=== PATIENT | male | born 1980 | race Caucasian/White ===

== ENCOUNTER 2016-08-14 11:21 | Inpatient (IN) | payer BC ==
[2016-08-14] MEDS ORDERED: Ondansetron 4 MG/2 ML SDV IV PRN (12:21)
[2016-08-14] MEDS ORDERED: Sodium Chloride 0.9% 10 ML Syringe FLUSH PRN (12:21)
[2016-08-14] MEDS ORDERED: Temazepam 15 MG Cap PO PRN (12:21)
[2016-08-14] MEDS ORDERED: Docusate Sodium 100 MG Cap PO PRN (12:21)
--- NOTE | 2016-08-14 12:41 | PCM.HP ---
H&P History of Present Illness - General Date of Service: 08/14/16 Admit Problem/Dx: Admission Diagnosis/Problem Admission Diagnosis/Problem Febrile disorder H/O Kidney Transplant Bergers Disease Source of Information: Patient History Limitations: Reports: No Limitations - History of Present Illness Initial Comments - Free Text/Narative: Patient in to clinic this am with fever 104.5 with chills and rigors for past 24 hours. Cough and congestion started yesterday with low grade fever indicates he slept most of the day with decreased fluid intake. He denies sick contacts. He was treated in clinic with Tylenol 1000 mg prior to admission. Work up for Sepsis initiated. Onset of Symptoms: Reports: Gradual Symptom Onset Date: 08/13/16 Symptom Onset Time: 08:00 Duration of Symptoms: Reports: Getting Worse Location: Reports: Generalized Quality: Reports: Other Severity: Severe Improves with: Reports: Rest. Denies: None Worsens with: Reports: Movement Context: Denies: Sick Contact, Travel Associated Symptoms: Reports: Cough, Diaphoresis, Fever/Chills, Malaise, Nausea/ Vomiting - Related Data Allergies/Adverse Reactions: Allergies Allergy/AdvReac Type Severity Reaction Status Date / Time vancomycin Allergy Intermediate Airway Verified 08/14/16 11:25 Tightness Home Medications: Home Meds Lisinopril [Prinivil] 20 mg PO DAILY 03/09/14 [History] Metoprolol Succinate [Toprol XL] 100 mg PO DAILY 03/09/14 [History] Mycophenolate Mofetil [Cellcept] 1,000 mg PO BID 03/09/14 [History] NIFEdipine [Procardia XL] 60 mg PO DAILY 03/09/14 [History] Sirolimus [Rapamune] 3 mg PO DAILY 03/09/14 [History] predniSONE [Prednisone] 5 mg PO DAILY 08/14/16 [History] Past Medical History - Past Health History Medical/Surgical History: Denies Medical/Surgical History (Bergers Disease with renal transplant in 2002) HEENT History: Reports: Impaired Vision Cardiovascular History: Reports: Hypertension Respiratory History: Reports: None Gastrointestinal History: Reports: None Genitourinary History: Reports: Chronic Renal Insuffiency, Dialysis, Other (See Below). Denies: Acute Renal Failure (Renal ransplant 2002) [employer] TE[employer]ER History: Reports: None Musculoskeletal History: Reports: None Neurological History: Reports: None Psychiatric History: Reports: None Endocrine/Metabolic History: Reports: None Hematologic History: Reports: Anemia Immunologic History: Reports: Immunosuppression, Solid Organ Transplant Oncologic (Cancer) History: Reports: None Dermatologic History: Reports: None - Infectious Disease History Infectious Disease History: Reports: None - Past Surgical History Head Surgeries/Procedures: Reports: None HEENT Surgical History: Reports: None Cardiovascular Surgical History: Reports: None Respiratory Surgical History: Reports: None GI Surgical History: Reports: None Female Surgical History: Reports: Other (See Below). Denies: Nephrectomy Male Surgical History: Reports: Nephrectomy (Transplant 2003) Endocrine Surgical History: Reports: None Neurological Surgical History: Reports: None Musculoskeletal Surgical History: Reports: None Oncologic Surgical History: Reports: None Dermatological Surgical History: Reports: None Social & Family History - Family History Family Medical History: Noncontributory Cardiac: Reports: CAD Respiratory: Reports: Asthma GI: Reports: None : Reports: None OBGYN: Reports: None Musculoskeletal: Reports: None Neurological: Reports: None Psychiatric: Reports: None Endocrine/Metabolic: Reports: None Hematologic: Reports: None Immunologic: Reports: None Dermatologic: Reports: None Oncologic: Reports: None - Tobacco Use Smoking Status *Q: Current Every Day Smoker Years of Tobacco use: 15 H&P Review of Systems - Review of Systems: Review Of Systems: See Below General: Reports: Fever, Chills, Malaise, Weakness, Fatigue, Night Sweats, Diaphoresis, Decreased Appetite HEENT: Reports: No Symptoms Pulmonary: Reports: Cough. Denies: Shortness of Breath, Wheezing, Pleuritic Chest Pain, Sputum, Hemoptysis Cardiovascular: Reports: Blood Pressure Problem, Other (Congestion) Gastrointestinal: Reports: Anorexia, Diarrhea, Decreased Appetite, Nausea, Vomiting. Denies: Abdominal Pain, Black Stool, Bloody Stool, Hematemesis Genitourinary: Reports: No Symptoms Musculoskeletal: Reports: Muscle Pain. Denies: Joint Pain, Joint Swelling Skin: Reports: No Symptoms Psychiatric: Reports: No Symptoms Neurological: Reports: No Symptoms Hematologic/Lymphatic: Reports: No Symptoms Immunologic: Reports: No Symptoms Exam - Exam Exam: See Below - Vital Signs Weight: 65.227 kg - Exam General: Alert, Oriented, Cooperative, Moderate Distress HEENT: Conjunctiva Clear, EACs Clear, EOMI, Hearing Intact, Mucosa Moist & [place] , Nares Patent, Normal Nasal Septum, Pupils Equal, Pupils Reactive Neck: Supple, Trachea Midline, Full Range of Motion Lungs: Clear to Auscultation, Normal Respiratory Effort. No: Decreased Breath Sounds, Crackles, Rales, Wheezing Cardiovascular: Regular Rate, Regular Rhythm, Normal S1, Normal S2 Abdomen: Normal Bowel Sounds, Soft (Male) Exam: Deferred Rectal (Males) Exam: Deferred Back Exam: Normal Inspection, Full Range of Motion Peripheral Pulses: 2+: Carotid (L), Carotid (R), Brachial (L), Brachial (R), Radial (L), Radial (R), Dorsalis Pedis (L), Dorsalis Pedis (R) Skin: Warm, Dry, Intact, Moist Neurological: Cranial Nerves Intact, Reflexes Equal Bilateral, Strength Equal Bilateral, Normal Speech Neuro Extensive - Mental Status: Alert, Oriented x3, Normal Mood/Affect, Normal Cognition, Memory Intact Neuro Extensive - Motor, Sensory, Reflexes: Normal Gait, Normal Reflexes Psychiatric: Alert, Normal Affect, Normal Mood (Acutely Ill) - Patient Data Lab Results last 24 hrs: Laboratory Results - last 24 hr 08/14/16 08/14/16 08/14/16 Range/Units 11:40 11:40 11:40 WBC 7.3 (5.0-10.0) 10^3/uL RBC 4.03 L (4.50-6.00) 10^6/uL Hgb 11.9 L (14.0-18.0) g/dL Hct 35.8 L (40.0-54.0) % MCV 88.8 (82.0-94.0) fL MCH 29.5 (27.0-32.0) pg MCHC 33.2 (33.0-38.0) g/dL RDW Coeff of Kika 13.1 (11.0-15.0) % Plt Count 101 L (150-400) 10^3/uL Neut % (Auto) 89.0 H (35-85) % Lymph % (Auto) 5.9 L (10-55) % [place] % (Auto) 4.6 (0-16) % Eos % (Auto) 0.1 (0-5) % Baso % (Auto) 0.4 (0-3) % Neut # (Auto) 6.51 (1.80-7.00) 10^3/uL Lymph # (Auto) 0.43 L (1.00-4.80) 10^3/uL [place] # (Auto) 0.34 (0.00-0.80) 10^3/uL Eos # (Auto) 0.01 (0.00-0.45) 10^3/uL Baso # (Auto) 0.03 10^3/uL Sodium 129 L (136-145) mEq/L Potassium 3.9 (3.5-5.0) mEq/L Chloride 98 (98-106) mEq/L Carbon Dioxide 16 L (21-32) mmol/L BUN 31 H (7-18) mg/dL Creatinine 2.8 H* D (0.7-1.3) mg/dL Est Cr Clr Drug Dosing 33.33 mL/min Estimated GFR (MDRD) 26 L (>=60) mL/min Glucose 133 H D (75-99) mg/dL Lactic Acid 1.3 (0.4-2.0) mmol/L Calcium 9.1 (8.4-10.1) mg/dL Total Bilirubin 0.4 (0.0-1.0) mg/dL AST 21 (15-37) U/L ALT 22 (12-78) U/L Alkaline Phosphatase 43 L (46-116) U/L C-Reactive Protein 8.2 H (0.2-0.8) mg/dL Total Protein 6.8 (6.4-8.2) g/dL Albumin 3.5 (3.4-5.0) g/dL Result Diagrams: 08/14/16 11:40 08/14/16 11:40 *Q Meaningful Use (ADM) - VTE *Q VTE Criteria *Q: - Stroke *Q Stroke Criteria *Q: - AMI *Q AMI Criteria *Q: - Problem List (1) Pneumonia SNOMED Code(s): 194791913 ICD Code: J18.9 - PNEUMONIA, UNSPECIFIED ORGANISM Status: Acute Current Visit: No (2) Kidney transplant evaluation SNOMED Code(s): 456357293 - Kidney transplant evaluation Status: Chronic Current Visit: No (3) Febrile illness, acute SNOMED Code(s): 333421079 ICD Code: R50.9 - FEVER, UNSPECIFIED Status: Acute Current Visit: Yes Problem List Initiated/Reviewed/Updated: Yes Orders Last 24hrs: Active Orders 24 hr Category Date Time Status Patient Status [ADT] Routine ADT 08/14/16 11:21 Ordered Height and Weight [RC] UPON Care 08/14/16 12:14 Ordered Intake and Output [RC] QSHIFT Care 08/14/16 12:15 Ordered Oxygen Therapy [RC] PRN Care 08/14/16 12:11 Ordered Oxygen Therapy [RC] PRN Care 08/14/16 12:14 Ordered Up ad Vidhya [RC] ASDIRECTED Care 08/14/16 12:14 Ordered VTE/DVT Education [RC] PER UNIT ROUTINE Care 08/14/16 12:14 Ordered Vital Signs [RC] Q4H Care 08/14/16 12:11 Ordered Vital Signs [RC] Q4H Care 08/14/16 12:14 Ordered Regular Diet [DIET] Diet 08/14/16 Lunch Ordered Chest 2V [CR] Routine Exams 08/14/16 11:24 Taken CBC WITH AUTO DIFF [HEME] AM Lab 08/15/16 05:11 Ordered CMP [COMPREHENSIVE METABOLIC PN,CMP] [CHEM] AM Lab 08/15/16 05:11 Ordered CRP [C-REACTIVE PROTEIN] [CHEM] Routine Lab 08/15/16 05:11 Ordered CULTURE BLOOD [BC] Stat Lab 08/14/16 11:40 Received CULTURE BLOOD [BC] Stat Lab 08/14/16 11:40 Received UA W/MICROSCOPIC [URIN] Routine Lab 08/14/16 11:23 Uncollected Acetaminophen [Tylenol] Med 08/14/16 12:14 Ordered 650 mg PO Q4H PRN Docusate Sodium [Colace] Med 08/14/16 12:21 Ordered 100 mg PO BID PRN Lactated Ringers [Ringers, Lactated] 1,000 ml Med 08/14/16 12:30 Ordered IV ASDIRECTED Lisinopril [Prinivil] Med 08/15/16 08:00 Ordered 20 mg PO DAILY Metoprolol Succinate [Toprol XL] Med 08/15/16 08:00 Ordered 100 mg PO DAILY Mycophenolate Mofetil [Cellcept] Med 08/14/16 20:00 Ordered 1,000 mg PO BID NIFEdipine [Procardia XL] Med 08/15/16 08:00 Ordered 60 mg PO DAILY Ondansetron [Zofran] Med 08/14/16 12:21 Ordered 4 mg IV Q4H PRN Sirolimus [Rapamune] Med 08/15/16 08:00 Ordered 3 mg PO DAILY Sodium Chloride 0.9% [Saline Flush] Med 08/14/16 12:21 Ordered 10 ml FLUSH ASDIRECTED PRN Temazepam [Restoril] Med 08/14/16 12:21 Ordered 15 mg PO BEDTIME PRN cefTRIAXone [Rocephin] Med 08/14/16 12:30 Ordered 1 gm IVPUSH Q24H predniSONE [Prednisone] Med 08/15/16 08:00 Ordered 5 mg PO DAILY Blood Culture x2 Reflex Set [OM.PC] Stat Oth 08/14/16 11:23 Ordered Saline Lock Insert [OM.PC] Routine Oth 08/14/16 12:14 Ordered Resuscitation Status Routine Resus Stat 08/14/16 12:11 Ordered Medication Orders Acetaminophen (Tylenol) 650 mg PO Q4H PRN PRN Reason: Pain (Mild 1-3)/fever Ceftriaxone Sodium (Rocephin) 1 gm IVPUSH Q24H RADHA Docusate Sodium (Colace) 100 mg PO BID PRN PRN Reason: Constipation Lactated Ringer's (Ringers, Lactated) 1,000 mls @ 125 mls/hr IV ASDIRECTED RADHA Lisinopril (Prinivil) 20 mg PO DAILY RADHA Metoprolol Succinate (Toprol Xl) 100 mg PO DAILY RADHA Non-Formulary Medication (Mycophenolate Mofetil [Cellcept]) 1,000 mg PO BID RADHA Non-Formulary Medication (Nifedipine [Procardia Xl]) 60 mg PO DAILY RADHA Non-Formulary Medication (Sirolimus [Rapamune]) 3 mg PO DAILY RADHA Non-Formulary Medication (Prednisone [Prednisone]) 5 mg PO DAILY RADHA Ondansetron HCl (Zofran) 4 mg IV Q4H PRN PRN Reason: Nausea/Vomiting Sodium Chloride (Saline Flush) 10 ml FLUSH ASDIRECTED PRN PRN Reason: Keep Vein Open Temazepam (Restoril) 15 mg PO BEDTIME PRN PRN Reason: Sleep Assessment/Plan Comment:: Acute febrile Illness Immuno -compromised Steroid Dependant Pneumonia
[2016-08-14] MEDS: cefTRIAXone 1 GM Vial IVPUSH SCH (13:03)
[2016-08-14] MEDS: Lactated Ringers 1,000 ML IV SCH ×2 (13:04→22:13)
[2016-08-14] MEDS: Acetaminophen 325 MG Tab PO PRN ×2 (15:00→20:10)
[2016-08-14] MEDS ORDERED: Levofloxacin/Dextrose 5%-Water 750 MG in Premix Bag 1 BAG IV ONE (16:37)
[2016-08-14] MEDS ORDERED: Calcium Carbonate 500 MG Tab.Chew PO PRN (19:18)
[2016-08-14] MEDS ORDERED: MYCOPHENOLATE MOFETIL 250 MG PO SCH (20:00)
[2016-08-14] MEDS: SIROLIMUS 1 MG PO SCH (20:10)
[2016-08-14] MEDS: Ibuprofen 200 MG Tab PO PRN (23:47)
[2016-08-15] MEDS: Lactated Ringers 1,000 ML IV SCH ×3 (06:20→21:51)
[2016-08-15] MEDS: MYCOPHENOLATE MOFETIL 250 MG PO SCH ×2 (08:00→20:25)
[2016-08-15] MEDS: NIFEdipine 30 MG Tab.ER PO SCH (08:20)
[2016-08-15] MEDS: Metoprolol Succinate 100 MG Tab.ER PO SCH (08:20)
[2016-08-15] MEDS: Lisinopril 20 MG Tab PO SCH (08:21)
[2016-08-15] MEDS: predniSONE 5 MG Tab PO SCH (08:21)
--- NOTE | 2016-08-15 10:14 | PCM.PN ---
- General Info Date of Service: 08/15/16 Admission Dx/Problem (Free Text): Admission Diagnosis/Problem Admission Diagnosis/Problem Febrile disorder H/O Kidney Transplant Bergers Disease Subjective Update: "I am feeling much better. I think I am getting caught up on fluids and I feel alot better. I have had a little bit of heartburn that TUMS works well for. My fever is down and I am not having any pain." Functional Status: Reports: pain controlled, tolerating diet, ambulating, urinating Pain Score: 0 - Review of Systems General: Reports: Fever (Decreased in the 100 range from 104.5), Appetite. Denies: Weakness, Fatigue, Malaise, Chills, Night Sweats HEENT: Reports: glasses Pulmonary: Reports: no symptoms. Denies: cough, sputum, wheezing Cardiovascular: Reports: No Symptoms. Denies: Chest Pain, Dyspnea on Exertion, Lightheadedness Gastrointestinal: Reports: Diarrhea. Denies: Abdominal pain, Nausea, Vomiting ( Hungry eating well) Genitourinary: Reports: other (Output increased voiding 600 cc last void). Denies: dysuria, frequency, burning, pain, urgency, incontinence, hematuria, retention, flank pain Musculoskeletal: Reports: no symptoms Skin: Reports: no symptoms Neurological: Reports: No Symptoms Psychiatric: Reports: no symptoms (Patient notes "Tick" last week with self removal mid chest region-) - Patient Data Vitals - most recent: Last Vital Signs Temp 35.3 C 08/15/16 08:00 Pulse 58 L 08/15/16 08:20 Resp 16 08/15/16 08:00 BP 100/56 L 08/15/16 08:21 Pulse Ox 98 08/15/16 08:00 Weight - most recent: 65.227 kg I&O - last 24 hours: Intake & Output 08/14/16 08/15/16 08/15/16 22:59 06:59 14:59 Intake Total 1999 1200 Output Total 250 Balance 1999 950 Lab Results last 24 hrs: Laboratory Results - last 24 hr 08/14/16 08/14/16 08/14/16 Range/Units 11:23 11:40 11:40 WBC 7.3 (5.0-10.0) 10^3/uL RBC 4.03 L (4.50-6.00) 10^6/uL Hgb 11.9 L (14.0-18.0) g/dL Hct 35.8 L (40.0-54.0) % MCV 88.8 (82.0-94.0) fL MCH 29.5 (27.0-32.0) pg MCHC 33.2 (33.0-38.0) g/dL RDW Coeff of Kika 13.1 (11.0-15.0) % Plt Count 101 L (150-400) 10^3/uL Neut % (Auto) 89.0 H (35-85) % Lymph % (Auto) 5.9 L (10-55) % [place] % (Auto) 4.6 (0-16) % Eos % (Auto) 0.1 (0-5) % Baso % (Auto) 0.4 (0-3) % Neut # (Auto) 6.51 (1.80-7.00) 10^3/uL Lymph # (Auto) 0.43 L (1.00-4.80) 10^3/uL [place] # (Auto) 0.34 (0.00-0.80) 10^3/uL Eos # (Auto) 0.01 (0.00-0.45) 10^3/uL Baso # (Auto) 0.03 10^3/uL Sodium 129 L (136-145) mEq/L Potassium 3.9 (3.5-5.0) mEq/L Chloride 98 (98-106) mEq/L Carbon Dioxide 16 L (21-32) mmol/L BUN 31 H (7-18) mg/dL Creatinine 2.8 H* D (0.7-1.3) mg/dL Est Cr Clr Drug Dosing 33.33 mL/min Estimated GFR (MDRD) 26 L (>=60) mL/min Glucose 133 H D (75-99) mg/dL Lactic Acid (0.4-2.0) mmol/L Calcium 9.1 (8.4-10.1) mg/dL Total Bilirubin 0.4 (0.0-1.0) mg/dL AST 21 (15-37) U/L ALT 22 (12-78) U/L Alkaline Phosphatase 43 L (46-116) U/L C-Reactive Protein 8.2 H (0.2-0.8) mg/dL Total Protein 6.8 (6.4-8.2) g/dL Albumin 3.5 (3.4-5.0) g/dL Urine Color Yellow (YELLOW) Urine Appearance Clear (CLEAR) Urine pH 5.5 (4.5-8.0) Ur Specific [place] 1.017 (1.003-1.020) Urine Protein >=300 H (NEGATIVE) mg/dL Urine Glucose (UA) Negative (NEGATIVE) mg/dL Urine Ketones Negative (NEGATIVE) mg/dL Urine Occult Blood Moderate H (NEGATIVE) Urine Nitrite Negative (NEGATIVE) Urine Bilirubin Negative (NEGATIVE) Urine Urobilinogen 0.2 (0.2-1.0) EU/dL Ur Leukocyte Esterase Negative (NEGATIVE) Urine RBC 5-10 H (0-5) /HPF Urine WBC Not seen (0-5) /HPF Ur Squamous Epith Cells Few H (NOT SEEN) /HPF Urine Bacteria Few H (NOT SEEN) /HPF 08/14/16 08/15/16 08/15/16 Range/Units 11:40 07:30 07:30 WBC 6.5 (5.0-10.0) 10^3/uL RBC 4.01 L (4.50-6.00) 10^6/uL Hgb 11.8 L (14.0-18.0) g/dL Hct 35.8 L (40.0-54.0) % MCV 89.3 (82.0-94.0) fL MCH 29.4 (27.0-32.0) pg MCHC 33.0 (33.0-38.0) g/dL RDW Coeff of Kika 13.3 (11.0-15.0) % Plt Count 67 L (150-400) 10^3/uL Neut % (Auto) 86.3 H (35-85) % Lymph % (Auto) 9.3 L (10-55) % [place] % (Auto) 4.2 (0-16) % Eos % (Auto) 0 (0-5) % Baso % (Auto) 0.2 (0-3) % Neut # (Auto) 5.59 (1.80-7.00) 10^3/uL Lymph # (Auto) 0.60 L (1.00-4.80) 10^3/uL [place] # (Auto) 0.27 (0.00-0.80) 10^3/uL Eos # (Auto) 0.00 (0.00-0.45) 10^3/uL Baso # (Auto) 0.01 10^3/uL Sodium 134 L (136-145) mEq/L Potassium 4.3 (3.5-5.0) mEq/L Chloride 101 (98-106) mEq/L Carbon Dioxide 21 (21-32) mmol/L BUN 34 H (7-18) mg/dL Creatinine 2.7 H* (0.7-1.3) mg/dL Est Cr Clr Drug Dosing 34.56 mL/min Estimated GFR (MDRD) 27 L (>=60) mL/min Glucose 99 D (75-99) mg/dL Lactic Acid 1.3 (0.4-2.0) mmol/L Calcium 8.9 (8.4-10.1) mg/dL Total Bilirubin 0.2 (0.0-1.0) mg/dL AST 33 (15-37) U/L ALT 30 (12-78) U/L Alkaline Phosphatase 38 L (46-116) U/L C-Reactive Protein 11.5 H (0.2-0.8) mg/dL Total Protein 6.1 L (6.4-8.2) g/dL Albumin 2.8 L (3.4-5.0) g/dL Urine Color (YELLOW) Urine Appearance (CLEAR) Urine pH (4.5-8.0) Ur Specific [place] (1.003-1.020) Urine Protein (NEGATIVE) mg/dL Urine Glucose (UA) (NEGATIVE) mg/dL Urine Ketones (NEGATIVE) mg/dL Urine Occult Blood (NEGATIVE) Urine Nitrite (NEGATIVE) Urine Bilirubin (NEGATIVE) Urine Urobilinogen (0.2-1.0) EU/dL Ur Leukocyte Esterase (NEGATIVE) Urine RBC (0-5) /HPF Urine WBC (0-5) /HPF Ur Squamous Epith Cells (NOT SEEN) /HPF Urine Bacteria (NOT SEEN) /HPF Med Orders - Current: Current Medications Acetaminophen (Tylenol) 650 mg PO Q4H PRN PRN Reason: Pain (Mild 1-3)/fever Last Admin: 08/14/16 20:10 Dose: 650 mg Calcium Carbonate/Glycine (Tums) 500 mg PO QID PRN PRN Reason: Dyspepsia Last Admin: 08/14/16 23:51 Dose: 500 mg Ceftriaxone Sodium (Rocephin) 1 gm IVPUSH Q24H [facility] Last Admin: 08/14/16 13:03 Dose: 1 gm Docusate Sodium (Colace) 100 mg PO BID PRN PRN Reason: Constipation Lactated Ringer's (Ringers, Lactated) 1,000 mls @ 125 mls/hr IV ASDIRECTED [facility] Last Admin: 08/15/16 06:20 Dose: 125 mls/hr Ibuprofen (Motrin) 600 mg PO Q8H PRN PRN Reason: Fever Last Admin: 08/14/16 23:47 Dose: 600 mg Lisinopril (Prinivil) 20 mg PO DAILY [facility] Last Admin: 08/15/16 08:21 Dose: Not Given Metoprolol Succinate (Toprol Xl) 100 mg PO DAILY [facility] Last Admin: 08/15/16 08:20 Dose: 100 mg Nifedipine (Procardia Xl) 60 mg PO DAILY [facility] Last Admin: 08/15/16 08:20 Dose: 60 mg Sirolimus [Rapamune] (1mg Own Med) 0 mg PO DAILY@1999 [facility] Last Admin: 08/14/16 20:10 Dose: 3 mg Mycophenolate Mofetil [Cellcept] 250mg Own Med 0 mg PO BID [facility] Ondansetron HCl (Zofran) 4 mg IV Q4H PRN PRN Reason: Nausea/Vomiting Prednisone (Prednisone) 5 mg PO DAILY [facility] Last Admin: 08/15/16 08:21 Dose: 5 mg Sodium Chloride (Saline Flush) 10 ml FLUSH ASDIRECTED PRN PRN Reason: Keep Vein Open Temazepam (Restoril) 15 mg PO BEDTIME PRN PRN Reason: Sleep Discontinued Medications Levofloxacin/Dextrose 750 mg/ (Premix) 150 mls @ 100 mls/hr IV ONETIME ONE Stop: 08/14/16 18:06 Last Admin: 08/14/16 17:52 Dose: 100 mls/hr Mycophenolate Mofetil [Cellcept] 250mg Own Med 0 mg PO BID [facility] Comments:: Patient doing well. Dehydration resolving. Patient reports "Tick" embedded mid chest last week with self removal. Denies rash or other S/S since removal. - Exam Quality Assessment: No: supplemental oxygen, central line/PICC, urine catheter, DVT prophylaxis, skin breakdown General: alert, oriented, cooperative, no acute distress HEENT: Pupils equal, EOMI, Mucous membr. moist/pink. No: Scleral icterus Neck: supple, trachea midline, no JVD, no thyromegaly Lungs: Clear to auscultation, Normal respiratory effort Cardiovascular: Regular Rate, Regular Rhythm Abdomen: bowel sounds present, soft, no tenderness, no distension (Male) Exam: Deferred Back Exam: Normal Inspection, Full Range of Motion Extremities: no edema, no calf tenderness Peripheral Pulses: 3+: Radial (L), Radial (R), Dorsalis Pedis (L), Dorsalis Pedis (R) Skin: warm, dry, intact, other (6 mm scab noted midchest S/P tick removal. No redness heat or rash noted.) Wound/Incisions: healing well. No: drainage, erythema Neurological: no new focal deficit, normal gait, normal speech, normal tone, strength equal bilateral, sensation intact Psy/Mental Status: alert, normal affect, normal mood - Problem List & Annotations (1) Pneumonia SNOMED Code(s): 218140808 Code(s): J18.9 - PNEUMONIA, UNSPECIFIED ORGANISM Status: Acute Current Visit: No (2) Kidney transplant evaluation SNOMED Code(s): 213784605 - Kidney transplant evaluation Status: Chronic Current Visit: No (3) Febrile illness, acute SNOMED Code(s): 256093334 Code(s): R50.9 - FEVER, UNSPECIFIED Status: Acute Current Visit: Yes - Problem List Review Problem List Initiated/Reviewed/Updated: Yes - My Orders Last 24 Hours: My Active Orders 08/14/16 11:21 Patient Status [ADT] Routine 08/14/16 11:23 Blood Culture x2 Reflex Set [OM.PC] Stat 08/14/16 11:24 Chest 2V [CR] Routine 08/14/16 11:40 CULTURE BLOOD [BC] Stat CULTURE BLOOD [BC] Stat 08/14/16 12:11 Oxygen Therapy [RC] .PRN Vital Signs [RC] 0000,0400,0800,1200,1600,2000 Resuscitation Status Routine 08/14/16 12:14 Oxygen Therapy [RC] PRN Up ad Vidhya [RC] .PRN Acetaminophen [Tylenol] 650 mg PO Q4H PRN Saline Lock Insert [OM.PC] Routine 08/14/16 12:15 Intake and Output [RC] 0600,1800 08/14/16 12:21 Docusate Sodium [Colace] 100 mg PO BID PRN Ondansetron [Zofran] 4 mg IV Q4H PRN Sodium Chloride 0.9% [Saline Flush] 10 ml FLUSH ASDIRECTED PRN Temazepam [Restoril] 15 mg PO BEDTIME PRN 08/14/16 12:30 Lactated Ringers [Ringers, Lactated] 1,000 ml IV ASDIRECTED cefTRIAXone [Rocephin] 1 gm IVPUSH Q24H 08/14/16 19:18 Calcium Carbonate [Tums] 500 mg PO QID PRN 08/14/16 20:00 Sirolimus [Rapamune] 0 mg PO DAILY@199908/14/16 22:45 Ibuprofen [Motrin] 600 mg PO Q8H PRN 08/14/16 Lunch Regular Diet [DIET] 08/15/16 08:00 Lisinopril [Prinivil] 20 mg PO DAILY Metoprolol Succinate [Toprol XL] 100 mg PO DAILY NIFEdipine [Procardia XL] 60 mg PO DAILY predniSONE 5 mg PO DAILY 08/15/16 09:30 Mycophenolate Mofetil [Cellcept] 0 mg PO BID - Assessment Assessment:: Febrile Illness Dehydration Renal Insufficiency History of renal transplant. - Plan Plan:: Acute febrile Illness Immuno -compromised Steroid Dependant Pneumonia 08/14/2016 Admission to hospital for rehydration and antibiotic treatment. Antipyretics. Comfort measures. 08/15/2016 Continue IVF hydration. Comfort measures. Antibiotic therapy with close observation of renal function. Await blood cultures. Increase ambulation. Refer back to Dr. Samson in am for further treatment plan.
[2016-08-15] MEDS: cefTRIAXone 1 GM Vial IVPUSH SCH (12:11)
[2016-08-15] MEDS: Acetaminophen 325 MG Tab PO PRN (20:25)
[2016-08-15] MEDS: SIROLIMUS 1 MG PO SCH (20:26)
[2016-08-15] MEDS: Ibuprofen 200 MG Tab PO PRN (21:52)
[2016-08-16] MEDS: Lactated Ringers 1,000 ML IV SCH (07:40)
[2016-08-16] MEDS: Metoprolol Succinate 100 MG Tab.ER PO SCH (07:50)
[2016-08-16] MEDS: Lisinopril 20 MG Tab PO SCH (07:51)
[2016-08-16] MEDS: predniSONE 5 MG Tab PO SCH (07:51)
[2016-08-16] MEDS: NIFEdipine 30 MG Tab.ER PO SCH (07:51)
[2016-08-16] MEDS: MYCOPHENOLATE MOFETIL 250 MG PO SCH ×2 (07:54→20:23)
[2016-08-16] MEDS: D5 1/2 NS w/ 20 mEq/L KCl 1,000 ML IV SCH ×2 (09:32→20:29)
[2016-08-16] MEDS: cefTRIAXone 1 GM Vial IVPUSH SCH (09:33)
[2016-08-16] MEDS: Sulfamethoxazole/Trimethoprim 800-160 MG Tab PO SCH ×2 (09:35→20:21)
--- NOTE | 2016-08-16 09:55 | PN ---
DATE: 08/16/2016 S: Salomón Silverio came in with fever, chills, diarrhea, vomiting, placed him on Rocephin. He said he got sick 12 hours after he ate crab meat and then he got sick. He was concerned about a tick bite on his chest may be doing it. O: HEENT: Post pharynx is fine. NECK: Supple. CHEST: Clear. CARDIAC: Regular. ABDOMEN: Soft. SKIN: Tick bite, nothing. ASSESSMENT: GASTROENTERITIS QUESTION POSSIBLY SALMONELLA. LITTLE LEERY TO USE LEVAQUIN ON BECAUSE OF THE KIDNEY FUNCTION. CERTAINLY, GAVE HIM SOME ORAL BACTRIM, KEEP ON ROCEPHIN, GET APPROPRIATE STOOL STUDIES. WE WILL TRY AND CORRECT HIS POTASSIUM. COSME/NINFA /[id number]
[2016-08-16] MEDS: SIROLIMUS 1 MG PO SCH (20:21)
[2016-08-17] MEDS: Ibuprofen 200 MG Tab PO PRN (00:11)
[2016-08-17] MEDS: D5 1/2 NS w/ 20 mEq/L KCl 1,000 ML IV SCH (00:11)
[2016-08-17 08:11] VITALS: BP 99/61
[2016-08-17] MEDS: predniSONE 5 MG Tab PO SCH (08:12)
[2016-08-17] MEDS: Sulfamethoxazole/Trimethoprim 800-160 MG Tab PO SCH (08:12)
[2016-08-17] MEDS: MYCOPHENOLATE MOFETIL 250 MG PO SCH (08:19)
[2016-08-17] MEDS: Metoprolol Succinate 100 MG Tab.ER PO SCH (08:21)
[2016-08-17] MEDS: cefTRIAXone 1 GM Vial IVPUSH SCH (08:22)
[2016-08-17] MEDS: NIFEdipine 30 MG Tab.ER PO SCH (08:22)
[2016-08-17] MEDS: Lisinopril 20 MG Tab PO SCH (08:22)
--- NOTE | 2016-08-17 10:03 | DISCH ---
HOSPITAL COURSE: Salomón Silverio is a gentleman who has chronic renal failure and acute renal failure secondary to gastroenteritis. I believe that he ate raw crab meat and probably got sick. He was started on IV Rocephin, I did start him on Bactrim, and he responded nicely. At time of discharge, he had no further diarrhea. OBJECTIVE: NECK: Supple. CHEST: Clear. CARDIAC: Regular. ABDOMEN: Soft. Normal bowel sounds. LABORATORY DATA: Labs here in the hospital. CBC: Hemoglobin was 11.9, dropped to 10.9, probably from IV fluids. He says he has anemia of chronic disease. Creatinine was 2.8 and discharge was 2.2. C-reactive protein got as high as 11.5, prior to discharge was down to 3. Urinalysis showed proteinuria. DISPOSITION: The patient is now discharged to home. See him back in the clinic next week for panel 8, CBC. DISCHARGE DIAGNOSIS: 1. ACUTE GASTROENTERITIS, QUESTION FOOD POISON. 2. ANEMIA OF CHRONIC DISEASE. 3. ACUTE ON CHRONIC RENAL INSUFFICIENCY. 4. HYPERTENSION. COSME/NINFA /[id number]
== END 2016-08-17 10:00 | disposition home or self-care (01) | DRG 254 ==
LOC: CC.MS 11:21
PROVIDERS: ADMIT Nurse Practitioner; ATTEND General Practice
DX: A05.9 Bacterial foodborne intoxication, unspecified (principal); N18.9 Chronic kidney disease, unspecified; D63.1 Anemia in chronic kidney disease; N17.9 Acute kidney failure, unspecified; Z94.0 Kidney transplant status; I12.9 Hypertensive chronic kidney disease with stage 1 through stage 4 chronic kidney disease, or unspecified chronic kidney disease; Z79.52 Long term (current) use of systemic steroids; Z79.899 Other long term (current) drug therapy
CPT/HCPCS: 36415; 71020; 80048; 80053; 81001; 82272; 83605; 85025; 86140; 87040; 87045; 87046; 87329; 87493; A9270-GY; J0696; J1956; J3480; J7120

== ENCOUNTER 2021-11-15 16:28 | Emergency (ER) | payer BC ==
[2021-11-15 16:31] VITALS: BP 134/77; PULSE 73
== END 2021-11-15 17:00 | disposition home or self-care (01) ==
LOC: CC.ED 16:28
DX: S60.212A Contusion of left wrist, initial encounter (principal); I10 Essential (primary) hypertension; Z88.1 Allergy status to other antibiotic agents; Z88.8 Allergy status to other drugs, medicaments and biological substances; Z79.899 Other long term (current) drug therapy; W22.8XXA Striking against or struck by other objects, initial encounter
CPT/HCPCS: 99283